=== PATIENT | male | born 1950 | race Two or more races ===

== ENCOUNTER 2022-07-26 22:19 | Inpatient (IN) | payer OTHER ==
[~2022-07-26] VITALS: Ht 177.8 cm; Wt 88.1 kg
[2022-07-26 23:00] LABS: Basophils # (auto) 0.1 10 ^3/uL (0-0.2); Basophils % (auto) 0.9 % (0.0-2.0); Eosinophils # (auto) 0.2 10 ^3/uL (0-0.8); Eosinophils % (auto) 3.4 % (0.0-7.0); Hematocrit 41.3 % (41.0-53.0); Hemoglobin 14.5 g/dL (13.5-17.5); Lymphocytes # (auto) 1.9 10 ^3/uL (0.4-5.4); Lymphocytes % (auto) 29.4 % (10.0-50.0); Mean Corpuscular Hemoglobin 33.8 pg (28.0-32.0); Mean Corpuscular Hgb Conc. 35.1 g/dL (32.0-36.0); Mean Corpuscular Volume 96.2 fL (80.0-100.0); Monocytes # (auto) 0.5 10 ^3/uL (0-1.3); Monocytes % (auto) 8.5 % (0.0-12.0); Neutrophils # (auto) 3.7 10 ^3/uL (1.6-8.6); Neutrophils % (auto) 57.8 % (37.0-80.0); Nucleated Red Blood Cells % 0.1 %; Red Cell Distribution Width 12.9 % (11.8-14.3); White Blood Cell 6.4 10^3/uL (4.4-10.8)
[2022-07-26] MEDS ORDERED: LABETALOL HCL 5 MG/ML 4ML SYRINGE IV ONE (23:00)
[2022-07-26 23:19] LABS: Urine Bacteria NONE SEEN /hpf (None Seen); Urine Blood Negative /uL (Negative); Urine Specific Gravity 1.022 (1.001-1.035); Urine WBC 1 /hpf (0 - 3)
[2022-07-26 23:29] LABS: Albumin 4.1 g/dL (3.4-5.0); Calcium 9.1 mg/dL (8.5-10.1)
[2022-07-26 23:31] LABS: Bilirubin, Total 0.5 mg/dL (0.2-1.0); Total Protein 7.4 g/dL (6.4-8.2)
[2022-07-27] MEDS ORDERED: NITROGLYCERIN 0.4 MG SL TAB SL ONE (00:45)
[2022-07-27] MEDS ORDERED: NITROGLYCERIN 0.4 MG SL TAB SL PRN (01:45)
[2022-07-27] MEDS ORDERED: hydrALAZINE HCL 20 MG/ML VL IV PRN (01:45)
[2022-07-27] MEDS ORDERED: HYDROcodone-ACET 5/325MG TAB PO PRN (01:45)
[2022-07-27] MEDS ORDERED: DEXTROSE (50%) 50ML SYRG IV PRN (01:45)
[2022-07-27] MEDS ORDERED: MORPHINE SULFATE INJ 2 MG/ml SYRG IV PRN (01:45)
[2022-07-27] MEDS ORDERED: DOCUSATE SOD 100 MG CAP PO PRN (01:45)
[2022-07-27] MEDS ORDERED: ONDANSETRON HCL 4 MG/2 ML VIAL IV PRN (01:45)
[2022-07-27] MEDS ORDERED: ONDANSETRON HCL 4 MG/2 ML VIAL IV ONE (02:00)
[2022-07-27] MEDS ORDERED: ASPirin 325 MG TAB PO ONE (03:00)
[2022-07-27 06:59] LABS: Basophils # (auto) 0 10 ^3/uL (0-0.2); Basophils % (auto) 0.6 % (0.0-2.0); Eosinophils # (auto) 0.1 10 ^3/uL (0-0.8); Eosinophils % (auto) 0.8 % (0.0-7.0); Hematocrit 38.8 % (41.0-53.0); Hemoglobin 13.1 g/dL (13.5-17.5); Lymphocytes # (auto) 1.1 10 ^3/uL (0.4-5.4); Lymphocytes % (auto) 15.3 % (10.0-50.0); Mean Corpuscular Hemoglobin 32.7 pg (28.0-32.0); Mean Corpuscular Hgb Conc. 33.8 g/dL (32.0-36.0); Mean Corpuscular Volume 96.6 fL (80.0-100.0); Monocytes # (auto) 0.4 10 ^3/uL (0-1.3); Monocytes % (auto) 5.5 % (0.0-12.0); Neutrophils # (auto) 5.6 10 ^3/uL (1.6-8.6); Neutrophils % (auto) 77.8 % (37.0-80.0); Red Blood Cells 4.02 10^6/uL (4.5-5.90); Red Cell Distribution Width 13.2 % (11.8-14.3); White Blood Cell 7.1 10^3/uL (4.4-10.8)
[2022-07-27 07:21] LABS: Albumin 3.3 g/dL (3.4-5.0); BUN/Creatinine Ratio 24.4; Calcium 9.1 mg/dL (8.5-10.1); Potassium 4.7 mmol/L (3.5-5.1); Total Protein 6.8 g/dL (6.4-8.2)
[2022-07-27 07:23] LABS: Bilirubin, Total 0.6 mg/dL (0.2-1.0)
[2022-07-27] MEDS: SODIUM CHLOR 0.9% PF (SALINE LOCK) 10ML VIAL/SYR IV SCH ×3 (07:25→22:41)
[2022-07-27] MEDS: InsuLIN REG 1unit/0.01ml Soln (100units/ml) SC SCH ×4 (07:51→22:40)
[2022-07-27] MEDS: ACCU-CHEK COMFORT CURVE STRIP VI SCH ×4 (07:52→22:00)
[2022-07-27 09:30] VITALS: BP 125/77
[2022-07-27] MEDS ORDERED: FAMOTIDINE (10MG/ML) 2ML VL IV SCH (10:00)
[2022-07-27] MEDS: ASPirin 81 mg TAB PO SCH (10:04)
[2022-07-27] MEDS: METOPROLOL TARTRATE 25 MG TAB PO SCH ×2 (10:05→22:41)
[2022-07-27 10:30] VITALS: BP 125/77
[2022-07-27 11:58] VITALS: BP 119/91
[2022-07-27 17:00] VITALS: BP 144/94
[2022-07-27] MEDS: TAMSULOSIN HYDROCHLORIDE 0.4 MG CAP PO SCH (18:09)
[2022-07-27 22:00] VITALS: BP 152/92
[2022-07-27] MEDS: ATORVASTATIN 20 MG TAB PO SCH (22:41)
[2022-07-28] MEDS: ACETAMINOPHEN 325 MG TAB PO PRN (00:39)
[2022-07-28 05:00] VITALS: BP 141/86
[2022-07-28] MEDS: ACCU-CHEK COMFORT CURVE STRIP VI SCH ×4 (05:37→21:15)
[2022-07-28] MEDS: InsuLIN REG 1unit/0.01ml Soln (100units/ml) SC SCH ×5 (05:37→21:16)
[2022-07-28] MEDS: SODIUM CHLOR 0.9% PF (SALINE LOCK) 10ML VIAL/SYR IV SCH ×3 (06:23→21:14)
[2022-07-28 06:47] LABS: Basophils # (auto) 0 10 ^3/uL (0-0.2); Basophils % (auto) 0.7 % (0.0-2.0); Eosinophils # (auto) 0.3 10 ^3/uL (0-0.8); Eosinophils % (auto) 4.1 % (0.0-7.0); Hematocrit 36.4 % (41.0-53.0); Lymphocytes # (auto) 1.9 10 ^3/uL (0.4-5.4); Lymphocytes % (auto) 30.3 % (10.0-50.0); Mean Corpuscular Hemoglobin 33.8 pg (28.0-32.0); Mean Corpuscular Hgb Conc. 35.8 g/dL (32.0-36.0); Mean Corpuscular Volume 94.5 fL (80.0-100.0); Monocytes # (auto) 0.5 10 ^3/uL (0-1.3); Monocytes % (auto) 7.9 % (0.0-12.0); Neutrophils # (auto) 3.6 10 ^3/uL (1.6-8.6); Nucleated Red Blood Cells % 0.1 %; Red Blood Cells 3.85 10^6/uL (4.5-5.90); Red Cell Distribution Width 13.1 % (11.8-14.3); White Blood Cell 6.3 10^3/uL (4.4-10.8)
[2022-07-28 07:10] LABS: Albumin 3.4 g/dL (3.4-5.0); BUN/Creatinine Ratio 23.1; Bilirubin, Total 0.7 mg/dL (0.2-1.0); Total Protein 6.3 g/dL (6.4-8.2)
[2022-07-28 09:00] VITALS: BP 148/97
[2022-07-28] MEDS: ASPirin 81 mg TAB PO SCH (09:10)
[2022-07-28] MEDS: METOPROLOL TARTRATE 25 MG TAB PO SCH ×2 (09:11→21:14)
[2022-07-28] MEDS: FINASTERIDE 5 MG TAB PO SCH (09:18)
[2022-07-28] MEDS ORDERED: LISINOPRIL 10 MG TAB PO ONE (12:00)
[2022-07-28] MEDS ORDERED: amLODIPine BESYLATE 5 MG TAB PO ONE (12:15)
[2022-07-28 13:00] VITALS: BP 133/83
[2022-07-28 16:41] VITALS: BP 148/87
[2022-07-28] MEDS: TAMSULOSIN HYDROCHLORIDE 0.4 MG CAP PO SCH (18:02)
[2022-07-28] MEDS: ATORVASTATIN 20 MG TAB PO SCH (21:14)
[2022-07-28 22:00] VITALS: BP 130/71
[2022-07-29 05:00] VITALS: BP 140/78
[2022-07-29] MEDS: SODIUM CHLOR 0.9% PF (SALINE LOCK) 10ML VIAL/SYR IV SCH ×3 (05:33→21:44)
[2022-07-29] MEDS: InsuLIN REG 1unit/0.01ml Soln (100units/ml) SC SCH ×4 (06:48→21:52)
[2022-07-29] MEDS: ACCU-CHEK COMFORT CURVE STRIP VI SCH ×4 (06:52→21:44)
[2022-07-29] MEDS: FINASTERIDE 5 MG TAB PO SCH (08:24)
[2022-07-29] MEDS: ACETAMINOPHEN 325 MG TAB PO PRN (08:24)
[2022-07-29] MEDS: METOPROLOL TARTRATE 25 MG TAB PO SCH ×2 (08:25→21:44)
[2022-07-29] MEDS: ASPirin 81 mg TAB PO SCH (08:26)
[2022-07-29] MEDS: amLODIPine BESYLATE 5 MG TAB PO SCH (08:26)
[2022-07-29 09:00] VITALS: BP 148/88
[2022-07-29] MEDS ORDERED: LISINOPRIL 10 MG TAB PO SCH (10:00)
[2022-07-29 13:00] VITALS: BP_SYST 126; BP_SYST 157; BP_DIAS 79; BP_DIAS 81
[2022-07-29 16:34] VITALS: BP 151/83
[2022-07-29] MEDS: TAMSULOSIN HYDROCHLORIDE 0.4 MG CAP PO SCH (17:32)
[2022-07-29] MEDS: ATORVASTATIN 20 MG TAB PO SCH (21:44)
[2022-07-29 22:00] VITALS: BP 156/83
[2022-07-30 05:00] VITALS: BP 134/81
[2022-07-30] MEDS: SODIUM CHLOR 0.9% PF (SALINE LOCK) 10ML VIAL/SYR IV SCH ×3 (06:18→21:10)
[2022-07-30] MEDS: ACCU-CHEK COMFORT CURVE STRIP VI SCH ×4 (06:45→21:10)
[2022-07-30] MEDS: InsuLIN REG 1unit/0.01ml Soln (100units/ml) SC SCH ×4 (06:58→21:10)
[2022-07-30] MEDS ORDERED: ADENOSINE 74 MG in GIVE UN-DILUTED 0 ML IV STA (07:51)
[2022-07-30 08:00] VITALS: BP 120/79
[2022-07-30 09:00] VITALS: BP 126/78
[2022-07-30] MEDS: FINASTERIDE 5 MG TAB PO SCH (10:05)
[2022-07-30] MEDS: METOPROLOL TARTRATE 25 MG TAB PO SCH ×2 (10:05→21:02)
[2022-07-30] MEDS: amLODIPine BESYLATE 5 MG TAB PO SCH (10:05)
[2022-07-30] MEDS: ASPirin 81 mg TAB PO SCH (10:05)
[2022-07-30 13:00] VITALS: BP 120/79
[2022-07-30] MEDS: TAMSULOSIN HYDROCHLORIDE 0.4 MG CAP PO SCH (16:55)
[2022-07-30] MEDS ORDERED: ENOXAPARIN SOD 40 MG/0.4 ML SYRINGE SC ONE (17:00)
[2022-07-30] MEDS: ATORVASTATIN 20 MG TAB PO SCH (21:01)
[2022-07-30 22:00] VITALS: BP 103/68
[2022-07-31 05:00] VITALS: BP 142/82
[2022-07-31] MEDS: InsuLIN REG 1unit/0.01ml Soln (100units/ml) SC SCH ×2 (06:04→11:58)
[2022-07-31] MEDS: ACCU-CHEK COMFORT CURVE STRIP VI SCH ×2 (06:04→11:58)
[2022-07-31] MEDS: SODIUM CHLOR 0.9% PF (SALINE LOCK) 10ML VIAL/SYR IV SCH (06:04)
[2022-07-31] MEDS ORDERED: ADENOSINE 74 MG in GIVE UN-DILUTED 0 ML IV STA (08:55)
[2022-07-31 09:00] VITALS: BP 126/79
[2022-07-31 09:10] VITALS: BP 107/69
[2022-07-31] MEDS ORDERED: ENOXAPARIN SOD 40 MG/0.4 ML SYRINGE SC SCH (10:00)
[2022-07-31] MEDS: amLODIPine BESYLATE 5 MG TAB PO SCH (10:08)
[2022-07-31] MEDS: ASPirin 81 mg TAB PO SCH (10:08)
[2022-07-31] MEDS: FINASTERIDE 5 MG TAB PO SCH (10:09)
[2022-07-31] MEDS: METOPROLOL TARTRATE 25 MG TAB PO SCH (10:09)
[2022-07-31] MEDS ORDERED: TAM04C PO (10:54)
[2022-07-31] MEDS ORDERED: FIN5T PO (10:54)
[2022-07-31 12:14] VITALS: BP 115/68
== END 2022-07-31 12:53 | disposition home or self-care (01) | DRG 305 ==
LOC: ER 22:28 → TELE-WESTW 07-27 01:58
PROVIDERS: ADMIT Nurse Practitioner Family; ATTEND Internal Medicine
DX: I16.0 Hypertensive urgency (principal); D68.69 Other thrombophilia; I48.20 Chronic atrial fibrillation, unspecified; E11.65 Type 2 diabetes mellitus with hyperglycemia; N40.0 Benign prostatic hyperplasia without lower urinary tract symptoms; K80.20 Calculus of gallbladder without cholecystitis without obstruction; E78.5 Hyperlipidemia, unspecified; I10 Essential (primary) hypertension; M10.9 Gout, unspecified; Z20.822 Contact with and (suspected) exposure to COVID-19; E66.9 Obesity, unspecified; Z68.27 Body mass index [BMI] 27.0-27.9, adult; Z88.8 Allergy status to other drugs, medicaments and biological substances; Z90.49 Acquired absence of other specified parts of digestive tract
CPT/HCPCS: 36415; 71045; 71250; 74176; 78452; 80053; 81001; 82962; 83036; 84154; 84484; 85025; 87426; 93005; 93017; 93306; 96374; 96375; G0378; J0153; J1815; J2405; J3490